=== PATIENT | female | born 1950 | race African-American/Black ===

== ENCOUNTER 2017-07-28 17:48 | Emergency (ER) | payer MEDICARE, BC ==
[~2017-07-28] VITALS: Ht 165.1 cm; Wt 77.0 kg
[~2017-07-28 17:48] MED LIST: HCTZ; LISINOPRIL; POTASSIUM
[2017-07-28 17:50] VITALS: BP 169/80
== END 2017-07-28 18:15 | disposition left against medical advice (07) ==
LOC: ER 17:48
DX: M79.601 Pain in right arm (principal); Z53.21 Procedure and treatment not carried out due to patient leaving prior to being seen by health care provider
CPT/HCPCS: 93005